=== PATIENT | male | born 1975 | race Caucasian/White ===

== ENCOUNTER 2024-10-05 17:09 | Emergency (ER) | payer BC ==
--- NOTE | 2024-10-05 18:57 | CT ---
EXAMINATION TYPE: CT brain cspine wo con, CT facial bones wo con DATE OF EXAM: 10/05/2024 6:43 PM COMPARISON: None. CLINICAL INDICATION: Male, 49 years old with history of pain after fall (accession [id number]), fall, b ruising around left eye (accession [id number]), Technique: CT of the head, facial bones, cervical spine without intravenous contrast. Coronal and sag ittal reconstructions performed. CT DLP: combined DLP 1245.6 mGycm, Automated exposure control for dose reduction was used. FINDINGS: Head: There is no evidence of acute intracranial hemorrhage, acute ischemic changes, mass, mass-effect, or extra-axial fluid collection. There is no effacement of cerebral sulci or basal subarachnoid cister ns. There is no hydrocephalus. There is no midline shift. Engel-white matter distinction is preserv ed. Mastoid air cells well pneumatized. Facial bones: Moderate mucosal thickening right maxillary sinus with trace air-fluid level. Moderate mucosal thicke kristin ethmoid air cells and mild to moderate within the sphenoid sinuses. Leftward nasal septal deviat ion. Orbits and globes are intact. Nasal bones are intact. Zygomatic arches and pterygoid plates as well a s the TMJs and mandible are intact. Cervical spine: No greater cervical junction abnormality, predental space widening, or prevertebral soft tissue swell ing. Degenerative change of the C1 dens articulation. Reversal of the normal cervical lordosis but with preserved alignment. Moderate degenerative disc disease C6-C7 and mild elsewhere throughout the cervical spine. Posterior disc bulging C3-C4 and C4-C5 contributes tor at least mild spinal canal stenosis. Assessmen t of the spinal canal from C5-C6 and below the Limited due to artifact from the patient's shoulders. No acute fracture seen of the cervical spine. Moderately advanced facet and uncovertebral joint arthropathy mid and lower cervical spine. Moderate to severe left foraminal stenosis C6-C7. There appears to be some generalized anasarca change. Sagittal and coronal reformatted images confirm above findings. COMBINED IMPRESSION: 1. No acute intracranial abnormality seen. 2. Correlate for acute on chronic paranasal sinus disease, moderate involving the right maxillary sin us. No acute facial bone fracture seen. 3. No acute fracture or malalignment of the cervical spine. Moderate multilevel spondylotic change. 4. There appears to be some generalized anasarca changes. Correlate with patient's fluid status. [facility], , 10/05/2024 6:54 PM
--- NOTE | 2024-10-05 19:02 | XR ---
EXAMINATION TYPE: XR chest 2V, XR knee complete 3 views RT DATE OF EXAM: 10/05/2024 6:50 PM COMPARISON: None CLINICAL INDICATION: Male, 49 years old with pain after history of fall, , FINDINGS: Chest: The cardiomediastinal silhouette, aorta, and pulmonary vasculature. Lungs and pleural spaces are duncan r. Right knee: Trace knee joint effusion. Extensor mechanism appears intact. No lipohemarthrosis. No acute fracture, subluxation, or dislocation. IMPRESSION: 1. Chest: No acute cardiopulmonary process. 2. Right knee: Trace knee joint effusion may be reactive to the patient's injury. No acute osseous ab normality seen. [facility], , 10/05/2024 7:00 PM
[2024-10-05 20:10] VITALS: BP 164/110; PULSE 91; RESP 19
[2024-10-05 20:12] VITALS: TEMP 99.2
--- NOTE | 2024-10-05 20:19 | ED ---
Fall HPI - General Chief Complaint: Fall Stated Complaint: Fall/Head Laceration Time Seen by Provider: 10/05/24 17:41 Source: patient, family Mode of arrival: wheelchair - History of Present Illness Initial Comments: 49-year-old male with history of muscular dystrophy presenting with chief complaint of fall. Patient reports that yesterday he had a mechanical fall from standing with head injury, no loss of consciousness or blood thinners. He did hurt his right knee. Because of his knee injury he did little bit of difficulty getting around today, this caused him to become unsteady and fell backwards and hit his head on his wheelchair causing a laceration to the back of the head. No loss of consciousness. His tetanus is up-to-date. He is having no nausea, vomiting, dizziness, vision or hearing changes, numbness, tingling, increased weakness. No chest pain, difficulty breathing, abdominal pain. - Related Data Allergies Allergy/AdvReac Type Severity Reaction Status Date / Time Penicillins Allergy Rash/Hives Verified 10/05/24 17:25 Review of Systems ROS Statement: Those systems with pertinent positive or pertinent negative responses have been documented in the HPI. ROS Other: All systems not noted in ROS Statement are negative. Past Medical History Past Medical History: Hypertension Additional Past Medical History / Comment(s): FSHD History of Any Multi-Drug Resistant Organisms: None Reported Past Surgical History: Tonsillectomy Additional Past Surgical History / Comment(s): muscle biopsy, vasectomy Past Psychological History: Anxiety Smoking Status: Never smoker Past Alcohol Use History: None Reported Past Drug Use History: None Reported General Exam Limitations: no limitations General appearance: alert, in no apparent distress Expanded Head exam: Present: laceration (3cm back of the head) Eye exam: Present: PERRL, EOMI, periorbital swelling, periorbital tenderness, other (Left-sided bruising) Pupils: Present: normal accommodation Neck exam: Present: normal inspection. Absent: tenderness, meningismus Respiratory exam: Present: normal lung sounds bilaterally. Absent: respiratory distress, wheezes, rales, rhonchi, stridor Cardiovascular Exam: Present: regular rate, normal rhythm, normal heart sounds. Absent: systolic murmur, diastolic murmur, rubs, gallop, clicks Neurological exam: Present: alert, oriented X3 Expanded Patient oriented to: Present: person, place, time Speech: Present: fluid speech Cranial nerves: EOM's Intact: Normal Eye Response: (4) open spontaneously Motor Response: (6) obeys commands Verbal Response: (5) oriented [place] Total: 15 Psychiatric exam: Present: normal affect, normal mood Skin exam: Present: warm, dry Course Vital Signs 10/05/24 10/05/24 17:20 20:09 Temperature 100.0 F H 99.2 F Pulse Rate 101 H 91 Respiratory 20 19 Rate Blood Pressure 154/106 164/110 O2 Sat by Pulse 98 96 Oximetry Medical Decision Making - Medical Decision Making Was pt. sent in by a medical professional or institution (, PA, DIGITAL PRODUCTION MANAGER, urgent care, hospital, or long-term...) When possible be specific @ -No Did you speak to anyone other than the patient for history (EMS, parent, family, police, friend...)? What history was obtained from this source @ - Did you review nursing and triage notes (agree or disagree)? Why? @ -I reviewed and agree with nursing and triage notes Were old charts reviewed (outside hosp., previous admission, EMS record, old EK G, old radiological studies, urgent care reports/EKG's, long-term records)? Report findings @ -No old charts were reviewed Differential Diagnosis (chest pain, altered mental status, abdominal pain women, abdominal pain men, vaginal bleeding, weakness, fever, dyspnea, syncope, headache, dizziness, GI bleed, back pain, seizure, CVA, palpatations, mental health, musculoskeletal)? @ -Differential includes uncomplicated head injury, fracture, hemorrhage, concussion, this is not an all-inclusive list EKG interpreted by me (3pts min.). @ -As above X-rays interpreted by me (1pt min.). @ -Right knee x-ray shows trace knee joint effusion may be reactive to the patient's injury. No acute osseous abnormality seen. Chest x-ray shows no acute cardiopulmonary process CT interpreted by me (1pt min.). @ -CT shows no acute intracranial abnormality. No acute facial bone fracture. No acute fracture or malalignment of the cervical spine. Moderate multilevel spondylitic changes. There appears to be some generalized anasarca changes. Correlate with patient's fluid status. U/S interpreted by me (1pt. min.). @ -None done What testing was considered but not performed or refused? (CT, X-rays, U/S, labs)? Why? @ -None What meds were considered but not given or refused? Why? @ -None Did you discuss the management of the patient with other professionals (professionals i.e. , PA, DIGITAL PRODUCTION MANAGER, lab, RT, psych nurse, social worker aide, ase certified technician, teacher, contract officer, human services case manager)? Give summary @ -No Was smoking cessation discussed for >3mins.? @ -No Was critical care preformed (if so, how long)? @ -No Were there social determinants of health that impacted care today? How? (Homelessness, low income, unemployed, alcoholism, drug addiction, transportation, low edu. Level, literacy, decrease access to med. care, half-way, rehab)? @ -No Was there de-escalation of care discussed even if they declined (Discuss DNR or withdrawal of care, Hospice)? DNR status @ -No What co-morbidities impacted this encounter? (DM, HTN, Smoking, COPD, CAD, Cancer, CVA, ARF, Chemo, Hep., AIDS, mental health diagnosis, sleep apnea, morbid obesity)? @ -Muscular dystrophy Was patient admitted / discharged? Hospital course, mention meds given and route, prescriptions, significant lab abnormalities, going to OR and other pertinent info. @ -49-year-old male with muscular dystrophy presenting for evaluation post fall. Patient had a fall yesterday hitting the front of his face and causing some left periorbital swelling and bruising. Today because of his injury yesterday his knee was weak causing him to fall backwards and hitting his head on his wheelchair. There is a 3 cm laceration to the back of the head which is stapled and repaired. His tetanus is up-to-date. CT is negative for any acute intracranial process, facial bone fracture, or cervical spine fracture. Chest x-ray shows no acute process. Knee x-ray shows some effusion which is likely reactive to his injury. On arrival his temperature is 100 F and pulse was 101. Patient was given no antipyretics while here on reassessment temperature and pulse have come down. Patient is having no symptoms of illness, no cough, congestion, sore throat, nausea, vomiting, etc. He otherwise feels well outside of his soreness from his injuries. Educated on today's findings and discharged. Follow-up with PCP. Report back to ER with any new or worsening symptoms. Discussed return parameters and answered all questions. Patient conveyed verbal understanding and agreed to the plan. I discussed this case in detail with my attending Dr. Perkins Undiagnosed new problem with uncertain prognosis? @ -No Drug Therapy requiring intensive monitoring for toxicity (Heparin, Nitro, Insulin, Cardizem)? @ -No Were any procedures done? @ -No Diagnosis/symptom? @ -Fall, head injury, scalp laceration Acute, or Chronic, or Acute on Chronic? @ -Acute Uncomplicated (without systemic symptoms) or Complicated (systemic symptoms)? @ -Uncomplicated Side effects of treatment? @ -No Exacerbation, Progression, or Severe Exacerbation? @ -No Poses a threat to life or bodily function? How? (Chest pain, [place], [place], pneumonia, PE, COPD, DKA, ARF, appy, cholecystitis, CVA, Diverticulitis, Homicidal, Suicidal, threat to staff... and all critical care pts) @ - - Lab Data Lab Results 10/05/24 Range/Units 19:05 Influenza Type A (PCR) Not Detected (Not Detectd) Influenza Type B (PCR) Not Detected (Not Detectd) RSV (PCR) Not Detected (Not Detectd) SARS-CoV-2 (PCR) Not Detected (Not Detectd) Disposition Clinical Impression: Fall, Scalp laceration Disposition: HOME SELF-CARE Condition: Good Instructions (If sedation given, give patient instructions): Head Injury (ED), Staple Care (ED), Head Laceration (ED) Additional Instructions: Follow-up with PCP. Report back to ER with any new or worsening symptoms. Alexandr may be be removed in 7 to 10 days. Do not get the wound wet for 24 hours. Afterwards he can wash gently with soap and water. Is patient prescribed a controlled substance at d/c from ED?: No Referrals: None,Stated [Primary Care Provider] - 1-2 days Time of Disposition: 20:19
== END 2024-10-05 20:33 | disposition home or self-care (01) ==
LOC: EC 17:09
DX: S01.01XA Laceration without foreign body of scalp, initial encounter (principal); G71.00 Muscular dystrophy, unspecified; Z88.0 Allergy status to penicillin; Z11.52 Encounter for screening for COVID-19; W19.XXXA Unspecified fall, initial encounter
CPT/HCPCS: 12002; 70450; 70486; 71046; 72125; 87636; 99284